=== PATIENT | female | born 1985 | race Two or more races ===

== ENCOUNTER 2020-07-11 11:32 | Emergency (ER) | payer OTHER ==
[~2020-07-11] VITALS: Ht 160 cm; Wt 70.8 kg
[2020-07-11] MEDS ORDERED: PRENATA CHEWAB1 EACH PO (12:07)
[2020-07-11] MEDS ORDERED: PROMETRIUM200 MG PO (12:07)
[2020-07-11] MEDS ORDERED: ACETAMINOPHEN650 M2 PO (19:03)
== END 2020-07-11 20:00 | disposition home or self-care (01) ==
LOC: ER 11:32
DX: N93.8 Other specified abnormal uterine and vaginal bleeding (principal)